=== PATIENT | female | born 1980 | race Hispanic/Latino ===

== ENCOUNTER 2017-06-19 21:08 | Inpatient (IN) | payer OTHER ==
[2017-06-19 21:17] VITALS: BMI 26.9
[2017-06-19] MEDS: Lactated Ringer's 1,000 ML IV SCH ×2 (22:00→23:00)
[2017-06-20 00:20] LABS: BASO % 0.3 % (0.0-2.0); EOS # 0.2 K/uL (0.0-0.7); EOS % 2.2 % (0.0-4.0); HEMOGLOBIN 11.9 g/dL (12.0-16.0); LYMPH # 2.6 K/uL (1.0-4.3); LYMPH % 24.6 % (20.0-40.0); MEAN CORPUSCULAR HEMOGLOBIN 29.6 pg (27.0-31.0); MEAN CORPUSCULAR HGB CONC 32.5 g/dL (33.0-37.0); MONO # 0.8 K/uL (0.0-0.8); MONO % 7.4 % (0.0-10.0); NEUT # 6.9 K/uL (1.8-7.0); NEUT % 65.5 % (50.0-75.0); NRBC % 0.2 % (0.0-0.0); RBC 4.02 Mil/uL (3.80-5.20); RED CELL DISTRIBUTION WIDTH 14.2 % (11.5-14.5); WHITE BLOOD COUNT 10.5 K/uL (4.8-10.8)
[2017-06-20] MEDS: Lactated Ringer's 1,000 ML IV SCH ×3 (09:40→18:53)
[2017-06-20] MEDS ORDERED: Oxytocin 30 UNITS in Sodium Chloride 0.9% 500 ML IV ONE (21:11)
[2017-06-21] MEDS: Lactated Ringer's 1,000 ML IV SCH (00:20)
[2017-06-21] MEDS ORDERED: Lidocaine 1% Inj (20ml) ONE ×2 (00:55→01:12)
[2017-06-21] MEDS: Oxytocin 30 UNITS in Sodium Chloride 0.9% 500 ML IV SCH (01:13)
--- NOTE | 2017-06-21 01:20 | OBDS ---
MATERNAL INFORMATION Provider Comments: Normal spontaneous vaginal delivery. Patient delivered viable female with Apgars of 9 and 9 at one and 5 minutes respectively. I nfant delivered via direct OA position. Placenta delivered spontaneously. Perineum intact, no lacerat ions. Uterus firm and appropriately hemostatic following delivery. Patient tolerated delivery well. N o complications. EBL 200 mL LABOR SUMMARY EDC: 06/14/2017 00:00 No. Babies in Womb: 1 Attempted: No LABOR INFORMATION Reason for Induction: Other Reason for Induction Other: elective Cervical Ripening Agents: Cytotec @ Group B Beta Strep: Negative Steroids Given: None Reason Steroids Not Administered: Not Applicable MEMBRANES Membranes Rupture Method: Spontaneous Rupture of Membranes: 06/20/2017 22:42 Amniotic Fluid Color: Clear Amniotic Fluid Amount: Moderate Amniotic Fluid Odor: Normal VAGINAL DELIVERY Episiotomy: None Laceration Extension: N/A Laceration Type: None Laceration Repair: Not Applicable BABY A INFORMATION Born in Route : No : N/A Forceps: N/A
[2017-06-21] MEDS ORDERED: Oxytocin 30 UNITS in Sodium Chloride 0.9% 500 ML IV ONE (01:56)
[2017-06-21 06:49] LABS: HEMOGLOBIN 10.6 g/dL (12.0-16.0); MEAN CELL VOLUME 90.7 fl (81.0-99.0); MEAN CORPUSCULAR HEMOGLOBIN 29.3 pg (27.0-31.0); MEAN CORPUSCULAR HGB CONC 32.3 g/dL (33.0-37.0); RBC 3.63 Mil/uL (3.80-5.20); RED CELL DISTRIBUTION WIDTH 14.1 % (11.5-14.5); WHITE BLOOD COUNT 14.9 K/uL (4.8-10.8)
[2017-06-21] MEDS ORDERED: Oxycodone/Acetaminophen 5/325 mg Tab PO PRN (07:15)
--- NOTE | 2017-06-21 10:41 | NBADN ---
Datetime: 06/21/2017 10:34 Nsy Prov Gen Appearance: Within Normal Limits Nsy Prov Gen Appearance: Within Normal Limits Nsy Prov Skin: Within Normal Limits Nsy Prov Neuro: Normal Tone; Graham; Grasp; Root; Suck Nsy Prov Musculoskeletal: Within Normal Limits; Full Range of Motion; Spontaneous Movement All Extre mities; Intact Clavicles; Clavicles without Crepitus; Gluteal Folds Symmetrical; Spine Within Normal Limits; No Sacral Dimple/Cyst Nsy Prov Head: Normal Fontanelles; Normocephalic; Sutures WNL Nsy Prov EENT: Mouth Within Normal Limits; Ears Within Normal Limits; Eyes Within Normal Limits; Eye s Red Reflex Bilaterally; Nose Within Normal Limits; Face Within Normal Limits Nsy Prov Cardiovascular: Within Normal Limits; Normal Pulses Nsy Prov Respiratory: Within Normal Limits Nsy Prov GI: Within Normal Limits; Soft; Normal Liver; Non Palpable Spleen; Patent Anus Nsy Prov Umbilicus: Within Normal Limits; Three Vessel Cord Nsy Prov : Normal Female Genitalia Nsy Prov PE Comments: Pt. examined with parents @ bedside. Nsy Prov Impression: Healthy Term ; Vital Signs Appropriate; Bonding Appropriately; Voiding a nd Stooling Nsy Prov Plan: Continue Care; Consult Nsy Prov Impression/Plan Details: Dx: FT AGA Female/ PLANS: Routine NN Care. Plans discussed w/ parents @ bedside. Nsy Prov Laboratory: None Datetime: 06/10/2017 21:29 Mother's Rule Inc Maternal Age: Age >=35 at LISA not specified Mother's Rule Thalassemia: Thalassemia History not specified Mother's Rule Neural Tube Defect: Neural Tube Defect History not specified Mother's Rule Congenital Heart: Congenital Heart Defect not specified Mother's Rule Down Syndrome: Down Syndrome History not specified Mother's Rule Kwame-Sachs: Kwame-Sachs History not specified Mother's Rule Stefan: Stefan History not specified Mother's Rule Familial Dysauto: Familial Dysautonomia History not specified Mother's Rule Sickle Cell: Sickle Cell Disease/Trait History not specified Mother's Rule Hemophilia: Hemophilia/Blood Disorder History not specified Mother's Rule Muscular Dystrophy: Muscular Dystrophy History not specified Mother's Rule Cystic Fibrosis: Cystic Fibrosis History not specified Mother's Rule [place]'s Chor: [place]'s Chorea History not specified Mother's Rule Mental Retardation: Mental Retardation/Autism History not specified Mother's Rule Fragile X: Fragile X Testing History not specified Mother's Rule Oth Inherited DO: Other Inherited/Chromosomal Disorders not specified Mother's Rule Maternal Metabolic: Maternal Metabolic History not specified Mother's Rule FOB Defects: Pt Father or FOB Defect History not specified Mother's Rule Hx Stillborn MBL: Loss/Stillborn History not specified Mother's Rule Other Genetic Hx: Other Genetic History not specified Mother's Rule Drugs/Medications: Drugs/Medications History not specified Mother's Rule Gonorrhea: Gonorrhea History Not Specified Mother's Rule Chlamydia: Chlamydia History not specified Mother's Rule Syphilis: Syphilis History not specified Mother's Rule HIV/AIDS Exp: HIV/Aids Exposure not specified Mother's Rule HPV: Human Papillomavirus History not specified Mother's Rule Genital Herpes: Genital Herpes not specified Mother's Rule TB: Tuberculosis History not specified Mother's Rule Hepatitis: Hepatitis History Not Specified Mother's Rule Rash or Viral Ill: Rash or Viral Illness History not specified Mother's Rule Diabetes: Diabetes History not specified Mother's Rule Hypertension MBL: History of Hypertension Not Specified Mother's Rule Heart Disease: Heart Disease History not specified Mother's Rule Autoimmune: Autoimmune Disorder History not specified Mother's Rule Kidney Disease: History of Kidney Disease/UTI not specified Mother's Rule Neurologic: Neurologic/Epilepsy Disorders not specified Mother's Rule Psych Disorders: Psychiatric Disorder History not specified Mother's Rule Depression/PP Dep: Depression/ Depression History not specified Mother's Rule Hepaitis/tLiver: History of Hepatitis/Liver Disease not specified Mother's Rule Varicos/Phlebitis: Varicosities/Phlebitis History Not Specified Mother's Rule Thyroid Dysfunct: Thyroid Dysfunction not specified Mother's Rule Trauma/Violence: Trauma/Violence History Not Specified Mother's Rule Blood Transfusion: Blood Transfusion History not specified Mother's Rule Sensitization: D (Rh) Sensitization not specified Mother's Rule Pulmonary: Pulmonary (Asthma, TB) History not specified Mother's Rule Breast: Breast History not specified Mother's Rule Electroencephalogram Technologist Surgery: Electroencephalogram Technologist Surgery Hx not specified Mother's Rule Hosp/Surgery: Hospitalization/Surgery History not specified Mother's Rule Anesthetic Comp: Anesthetic Complications Hx not specified Mother's Rule Abnormal Pap: Abnormal Pap Smear not specified Mother's Rule Uterine Anomaly: Uterine Anomaly/HERVE not specified Mother's Rule Infertility: Infertility Not Specified Mother's Rule ART Treatment: ART Treatment History not specified Mother's Rule Other Med Disease: Other Medical Diseases History not specified Mother's Rule Family History: Significant Family History not specified
--- NOTE | 2017-06-22 13:18 | OBPPN ---
Datetime: 06/22/2017 13:15 PP Pain Prov: Within normal limits PP Nausea Prov: Denies PP Flatus Prov: Yes PP BM Prov: No PP Breasts Prov: Normal PP Heart Prov: Normal PP Lungs Prov: Normal PP Abdomen/Uterus Prov: Normal PP Lochia Prov: Normal PP Extremities Prov: Normal PP Progress Prov: Not Applicable PP Comments Phys Exam Prov: hgb 10.6 PP Impression Prov: Normal progression PP Plan Prov: Continue present management PP Progress Note Prov: s: no c/o i:s/p doing well p: rout pp care IP PP Procedures: None
[2017-06-22 22:26] VITALS: BP 100/58; PULSE 78; RESP 20; TEMP 98.3; O2SAT 100
== END 2017-06-22 16:30 | disposition home or self-care (01) | DRG 775 ==
LOC: H.EROB2 21:08 → H.L&D 21:25 → H.OB/GYN 06-21 03:00
PROVIDERS: ADMIT Obstetrics & Gynecology; ATTEND Obstetrics & Gynecology
PROC: 10E0XZZ Delivery of Products of Conception, External Approach (ICD-10-PCS; principal; 2017-06-19)
PROC: 4A1HXCZ Monitoring of Products of Conception, Cardiac Rate, External Approach (ICD-10-PCS; 2017-06-19)
DX: O48.0 Post-term pregnancy (principal); O41.03X0 Oligohydramnios, third trimester, not applicable or unspecified; O62.3 Precipitate labor; Z37.0 Single live birth; Z3A.41 41 weeks gestation of pregnancy